=== PATIENT | female | born 1995 | race Caucasian/White ===

== ENCOUNTER 2024-08-16 06:51 | Emergency (ER) | payer OTHER ==
[~2024-08-16] VITALS: Ht 162.6 cm; Wt 55.0 kg
[~2024-08-16 06:51] MED LIST: AMOXICILLIN500 MG PO; BACTRIM DS TAB1 EACH PO; CEPHALEXIN500 MG PO; NORCO 5-325 TA1 EACH PO; PRENATAL VITAM1 EACH PO; TRAMADOL HCL50 MG PO
[2024-08-16 07:56] LABS: BILIRUBIN, URINE NEGATIVE (negative); BLOOD/HGB, URINE NEGATIVE (Negative); KETONE, URINE NEGATIVE (Negative); LEUK ESTERASE, URINE SMALL (negative); NITRITE, URINE POSITIVE (negative)
[2024-08-16 08:04] LABS: BACTERIA, URINE 3+ /hpf (negative); CRYSTALS, URINE NONE SEEN (0-1+); RED BLOOD CELLS, URINE 0-1 /hpf (0-5)
[2024-08-16 08:05] LABS: CASTS, URINE NONE SEEN \\lpf; COLLECTION TYPE, URINE CLEAN CATCH; REFLEX CULTURE, URINE No (No)
[2024-08-16 08:10] LABS: AMPHETAMINES, URINE NEGATIVE (NEGATIVE); BARBITURATES, URINE NEGATIVE (NEGATIVE); BENZODIAZEPINE, URINE NEGATIVE (NEGATIVE); BUPRENORPHINE, URINE NEGATIVE (NEGATIVE); CANNABINOID, URINE NEGATIVE (NEGATIVE); COCAINE, URINE NEGATIVE (NEGATIVE); ECSTASY, URINE NEGATIVE (NEGATIVE); FENTANYL, URINE NEGATIVE (NEGATIVE); METHADONE, URINE NEGATIVE (NEGATIVE); OPIATES, URINE NEGATIVE (NEGATIVE); OXYCODONE, URINE NEGATIVE (NEGATIVE); PHENCYCLIDINE, URINE NEGATIVE (NEGATIVE)
[2024-08-16 08:35] LABS: BASOPHILS 1.1 % (0-2); EOSINOPHILS 0.3 % (0-6); HEMATOCRIT 46.9 % (35.0-50.0); HEMOGLOBIN 15.9 g/dL (12.0-18.0); LYMPHOCYTES 22.6 % (24-44); MCH 29.4 (27-36); MCHC 33.8 g/dl (30-36); MONOCYTES 6.5 % (0-12); NEUTROPHILS 69.5 % (39-80); PLATELET COUNT 215 K/uL (140-440); RBC 5.39 M/ul (4.3-5.7)
[2024-08-16] MEDS ORDERED: KETOROLAC TROMETHAMINE 30 MG/ML VIAL IV ONE (09:00)
[2024-08-16] MEDS ORDERED: AMP/SULBACTAM SOD 1.5 GM in SODIUM CHLORIDE 0.9% 100 ML IV ONE (09:00)
[2024-08-16 09:08] LABS: ALBUMIN/GLOBULIN RATIO 1.08 (1.1-2.4); ALCOHOL, MEDICAL <3 ng/dL (<3); ALKALINE PHOSPHATASE 94 U/L (46-116); ALT (SGPT) 17 U/L (14-59); ANION GAP 9.5 (7-21); AST (SGOT) 20 U/L (15-37); BILIRUBIN, TOTAL 0.4 ng/dL (0.2-1.0); CALCIUM 9.4 mg/dL (8.5-10.1); CARBON DIOXIDE 29 mmol/L (21-32); CHLORIDE 102 mmol/L (98-107); CREATINE KINASE 72 U/L (26-192); POTASSIUM 4.5 mmol/L (3.5-5.1); PROTEIN, TOTAL 7.7 g/dL (6.4-8.2)
[2024-08-16 09:29] LABS: BUN/CREATININE RATIO 16.04 (6.0-28.6); CREATININE, SERUM 0.81 mg/dL (0.55-1.02); GLOMERULAR FILTRATION RATE,EST 101 mL/min (>60); UREA NITROGEN 13 mg/dL (7-18)
[2024-08-16 09:42] LABS: ABO O; RH POSITIVE
[2024-08-16 09:43] LABS: ANTIBODY SCREEN NEGATIVE
[2024-08-16] MEDS ORDERED: KETOROLAC TROME10 MG PO (10:38)
[2024-08-16] MEDS ORDERED: AMOX TR-K CLV1 EAC1 PO (10:38)
[2024-08-16 10:45] VITALS: BP 107/86
== END 2024-08-16 11:04 | disposition left against medical advice (07) ==
LOC: ED 06:51
PROVIDERS: Emergency Medicine
DX: S02.69XA Fracture of mandible of other specified site, initial encounter for closed fracture (principal); F17.200 Nicotine dependence, unspecified, uncomplicated; Z53.29 Procedure and treatment not carried out because of patient's decision for other reasons; W06.XXXA Fall from bed, initial encounter
CPT/HCPCS: 36415; 70450; 70486; 72125; 80053; 80307; 81001; 82553; 83605; 84703; 85025; 86850; 86900; 86901; 96365; 96375; 99284-25; G0480; J0295; J1885